=== PATIENT | female | born 1965 | race Caucasian/White ===

== ENCOUNTER 2016-09-03 00:28 | Emergency (ER) | payer BC, OTHER ==
[~2016-09-03] VITALS: Ht 157.5 cm; Wt 44.0 kg
[~2016-09-03 00:28] MED LIST: DILA100C PO; LACO50 PO
[2016-09-03 00:30] VITALS: BP 173/73; PULSE 93; RESP 16; TEMP 97.6; O2SAT 100
[2016-09-03] MEDS ORDERED: ESLI1TAB PO (00:58)
[2016-09-03] MEDS ORDERED: LACO100 PO (00:58)
--- NOTE | 2016-09-03 01:51 | PD ---
HPI Chief Complaint: Seizure Time Seen by Provider: 01:44 Travel History International Travel<30 days: No Contact w/Intl Traveler<30days: No Traveled to known affect area: No History of Present Illness HPI 51-year-old female presents to the emergency department by private transportation the care of family for evaluation of facial and nose injury after a seizure. 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 Patient is currently under the care of Dr. Clark. Patient is currently prescribed Vimpat 100 mg twice daily and Aptiom 200 mg in the morning and 100 mg at night. Patient states she has been very compliant with her medications. Patient states this is the first breakthrough seizure she 's had since being on his regimen. Patient states around 11:30 she went to the bathroom to take a shower took her shower and was in the process of dressing in the bathroom when sometime thereafter she found herself on the floor with blood around her and fluid coming from her nose. Patient states that she suspects she had a generalized tonic-clonic seizure she did not bite her tongue or have any bladder or bowel incontinence. Patient went into the living room where her was around 12 midnight and has been states that she was conversant but was not back to her baseline for another 15 minutes. Patient denies headache or neck pain. Patient does complain of facial pain and is noted to have soft tissue swelling and mild deformity of the nose with evidence of dried blood in the left nostril. Patient denies chest pain chest wall pain rib pain abdominal pain back pain pelvic pain or extremity pain other than mild tenderness to the left knee. Patient denies other concerns or complaints. PFSH Past Medical History Narrative Medical Seizures immunizations current tonsillectomy tubal ligation Reversol no tobacco use no alcohol use and substance use nursing notes reviewed Diminished Hearing: No Immunizations Current: Yes Seizures: Yes ("PARTIAL") Tetanus Vaccination: Unknown Influenza Vaccination: No ?: Not : 5 Para: 4 Miscarriage: 1 Past Surgical History Genitourinary Surgery: Yes (TUBAL REVERSAL) Tonsillectomy: Yes Social History Alcohol Use: No Tobacco Use: No Substance Use: No Allergies-Medications (Allergen,Severity, Reaction): Coded Allergies: Sulfa (Verified Allergy, Mild, 09/03/16) Penicillin (Unverified Allergy, Unknown, 09/03/16) Reported Meds & Prescriptions Reported Meds & Active Scripts Active Lortab (Hydrocodone-Acetaminophen) 5-325 Mg Tab 1 Tab PO Q6H PRN Clindamycin (Clindamycin HCl) 150 Mg Cap 300 Mg PO Q6H 7 Days Reported Vimpat (Lacosamide) 100 Mg Tab 100 Mg PO BID Aptiom (Eslicarbazepine) 200 Mg Tab 100 Mg PO BID Review of Systems Except as stated in HPI: all other systems reviewed are Neg General / Constitutional: No: Fever, Chills Eyes: No: Visual changes HENT: Positive: Congestion, Nosebleed, No: Headaches Cardiovascular: No: Chest Pain or Discomfort Respiratory: No: Shortness of Breath Gastrointestinal: No: Nausea, Vomiting Genitourinary: No: Flank Pain Musculoskeletal: No: Myalgias, Arthralgias Skin: No Rash Neurologic: Positive: Seizures, No: Weakness Psychiatric: No: Anxiety Hematologic/Lymphatic: No: Lymph Node Enlargement Physical Exam Narrative GENERAL: Well-developed well-nourished female in no acute distress no respiratory distress; GCS 15. SKIN: Warm and dry. HEAD: Atraumatic. Normocephalic. EYES: Pupils equal and round. Extraocular muscles intact. No scleral icterus. No injection or drainage. ENT: No nasal bleeding or discharge. Mucous membranes pink and moist. No hemotympanum. Airway is patent and no posterior pharyngeal blood noted. No tongue trauma. Patient does have soft tissue swelling and deformity of the nose with blood in the left nostril without evidence of a septal hematoma no active bleeding at this time. Superficial abrasion to the nasal bridge. NECK: Trachea midline. No JVD. CARDIOVASCULAR: Regular rate and rhythm. RESPIRATORY: No accessory muscle use. Clear to auscultation. Breath sounds equal bilaterally. GASTROINTESTINAL: Abdomen soft, non-tender, nondistended. Hepatic and splenic margins not palpable. MUSCULOSKELETAL: Extremities without clubbing, cyanosis, or edema. No obvious deformities. NEUROLOGICAL: Awake and alert. No obvious cranial nerve deficits. Motor grossly within normal limits. Five out of 5 muscle strength in the arms and legs. Normal speech. PSYCHIATRIC: Appropriate mood and affect; insight and judgment normal. Data Data Last Documented VS Vital Signs Date Time Temp Pulse Resp B/P Pulse Ox O2 Delivery O2 Flow Rate FiO2 09/03/16 00:30 97.6 93 16 173/[address] Brain W/O Iv Contrast(Rout) (09/03/16 ) Ct Facial Bones W/O Iv Cont (09/03/16 ) MDM Medical Decision Making Medical Screen Exam Complete: Yes Emergency Medical Condition: Yes Medical Record Reviewed: Yes Interpretation(s) Last Impressions Maxillofacial CT 09/03/16 0000 Signed Impressions: Service Date/Time: Saturday, September 03, 2016 02:15 - CONCLUSION: Comminuted fracture of the nose with leftward deviation. Other facial bones are intact. Robert Jones MD Head CT 09/03/16 0000 Signed Impressions: Service Date/Time: Saturday, September 03, 2016 02:15 - CONCLUSION: Negative noncontrast head CT. Robert Jones MD Differential Diagnosis Breakthrough seizure, noncompliance, head injury, nasal fracture, septal hematoma Narrative Course Seizure precautions applied; imaging studies ordered patient is currently on Vimpat and aptiom and these values cannot be measured while patient is in the emergency department to determine their therapeutic level. No blood work indicated at this time. \\Imaging studies are consistent with CT brain noncontrast revealing no acute abnormalities CT facial bones noncontrast showing comminuted fracture of the nasal bones with stable septum and no septal hematoma no other facial fractures noted Patient has been resting comfortably no further seizure activity states that she did take her evening dose of seizure medication around 10 PM and frequently if she has a breakthrough seizure or seizure related to change in time of taking her medication for her regimen is typically in the evening and in the bathroom. Patient will have close follow-up with her neurologist for adjustment of her medications. Patient given tetanus booster, first dose of antibiotic, pain medication, continue with intermittent ice application. Diagnosis Primary Impression: Seizure Additional Impressions: Nasal fracture Qualified Code: S02.2XXA - Closed fracture of nasal bone, initial encounter Left-sided nosebleed Referrals: Ear / Nose / Throat Specialist 1 day call office in the AM to schedule follow up appointment; eye surgeon ent Dr Ham Patient Instructions: General Instructions Departure Forms: Tests/Procedures, Work Release Special Instructions: no work x 2 days Additional Instructions: Follow-up with landing gear mechanic call office in a.m. to schedule follow-up appointment Follow-up with Dr. Eduardo talavera neurologist call office in a.m. Continue current medications as presently prescribed Take antibiotic as prescribed Take pain medication as prescribed as needed Apply ice intermittently for the first 12-24 hours to decrease soft tissue swelling of the nose Follow head injury precautions 24 hours Return to the emergency for for any concerns or change in condition NO driving handling heavy equipment or climbing ladders or swimming until follow -up with your specialist follow-up with your primary care provider do NOT blow your nose no work x 2 days Med/Other Pt SpecificInfo: Prescription(s) given Scripts Hydrocodone-Acetaminophen (Lortab)5-325 Mg Tab1 Tab PO Q6H PRN (PAIN) #7 TAB Ref 0 Prov:Jeanne Rivera MD 09/03/16 Clindamycin 150 Mg [id number] Mg PO Q6H 7 Days Ref 0 Prov:Jeanne Rivera MD 09/03/16 Disposition: 01 DISCHARGE HOME Condition: Stable Jeanne Rivera MD Sep 03, 2016 01:51
--- NOTE | 2016-09-03 02:49 | RADRPT ---
EXAM DATE/TIME: 09/03/2016 02:15 [facility] COMPARISON: No previous studies available for comparison. INDICATIONS : Possible seizure tonight, facial swelling. RADIATION DOSE: 30.05 CTDIvol (mGy) MEDICAL HISTORY : Seizures. SURGICAL HISTORY : Tonsillectomy. ENCOUNTER: Initial ACUITY: 1 day PAIN SCALE: 7/10 LOCATION: cranial TECHNIQUE: Multiple contiguous axial images were obtained of the head. Using automated exposure control and adj ustment of the mA and/or kV according to patient size, radiation dose was kept as low as reasonably a chievable to obtain optimal diagnostic quality images. FINDINGS: CEREBRUM: The ventricles are normal for age. No evidence of midline shift, mass lesion, hemorrhage or acute in farction. No extra-axial fluid collections are seen. POSTERIOR FOSSA: The cerebellum and brainstem are intact. The 4th ventricle is midline. The cerebellopontine angle i s unremarkable. EXTRACRANIAL: The visualized portion of the orbits is intact. SKULL: The calvaria is intact. No evidence of skull fracture. CONCLUSION: Negative noncontrast head CT. Robert Jones MD on September 03, 2016 at 2:47 Board Certified Radiologist. This report was verified electronically.
--- NOTE | 2016-09-03 02:51 | RADRPT ---
EXAM DATE/TIME: 09/03/2016 02:15 [facility] COMPARISON: No previous studies available for comparison. INDICATIONS : Possible seizure, facial swelling. RADIATION DOSE: 47.49 CTDIvol (mGy) MEDICAL HISTORY : Seizures. SURGICAL HISTORY : Tonsillectomy. ENCOUNTER: Initial ACUITY: 1 day PAIN SCORE: 7/10 LOCATION: facial TECHNIQUE: Volumetric scanning of the facial bones was performed. Using automated exposure control and adjustme nt of the mA and/or kV according to patient size, radiation dose was kept as low as reasonably achiev able to obtain optimal diagnostic quality images. FINDINGS: ORBITS: The orbital and infraorbital osseous structures are intact. The retroconal structures have a normal configuration. No radiopaque foreign bodies are seen. NASAL BONE: There is comminuted fracturing of the tip of the nasion and both sides of the nasal arch. There is mo derate to severe deviation of the nose to the left. ZYGOMATIC ARCHES: Symmetric without evidence of fracture. SINUSES: The maxillary, ethmoid and frontal sinuses are intact. No air-fluid levels seen. NASAL CAVITY: The nasal septum is intact and midline. The lacrimal ducts are intact. SOFT TISSUES: No radiopaque foreign bodies seen. No soft-tissue swelling is seen. INTRACRANIAL: No intracranial air seen. CRIBIFORM PLATE: Grossly intact. CONCLUSION: Comminuted fracture of the nose with leftward deviation. Other facial bones are intact. Robert Jones MD on September 03, 2016 at 2:48 Board Certified Radiologist. This report was verified electronically.
[2016-09-03] MEDS ORDERED: CLIN1CAP5 PO (03:04)
[2016-09-03] MEDS ORDERED: HYDR-3533 PO (03:04)
[2016-09-03] MEDS ORDERED: CLINDAMYCIN 150 MG CAP PO ONE (03:15)
[2016-09-03] MEDS ORDERED: ACETAMINOPHEN/HYDROcodone 325 MG/5 MG TAB PO ONE (03:15)
[2016-09-03] MEDS ORDERED: TETANUS/DIPHTHERIA TOXOID ADULT 0.5 ML VIAL IM ONE (03:15)
[2016-09-03 03:27] VITALS: BP 140/78
== END 2016-09-03 03:42 | disposition home or self-care (01) ==
LOC: NEPC 00:28
DX: S02.2XXA Fracture of nasal bones, initial encounter for closed fracture (principal); X58.XXXA Exposure to other specified factors, initial encounter; Y92.002 Bathroom of unspecified non-institutional (private) residence as the place of occurrence of the external cause; Z23 Encounter for immunization
CPT/HCPCS: 70450; 70486; 90471; 90714